=== PATIENT | male | born 1980 | race Caucasian/White ===

== ENCOUNTER 2020-03-08 16:10 | Emergency (ER) | payer SELFPAY ==
[~2020-03-08] VITALS: Ht 182.9 cm; Wt 111.1 kg
[2020-03-08 17:00] VITALS: Ht 182.9 cm; Wt 111.1 kg
[2020-03-08 19:25] VITALS: BP 132/87
== END 2020-03-08 19:24 | disposition home or self-care (01) ==
LOC: ED 16:10
DX: M51.37 Other intervertebral disc degeneration, lumbosacral region (principal)
CPT/HCPCS: J1885